=== PATIENT | male | born 1945 | race African-American/Black ===

== ENCOUNTER 2021-10-23 20:52 | Emergency (ER) | payer MEDICARE ==
[~2021-10-23] VITALS: Ht 180.3 cm; Wt 98.2 kg
[2021-10-23 21:11] VITALS: BP 190/81
--- NOTE | 2021-10-23 21:36 | PHYS DOC ---
Past History Past Surgical History: Other Additional Past Surgical Histo: CABG, Back sx x2, Neck surgeryx2,Hip sx x2 Alcohol Use: None Adult General Chief Complaint Chief Complaint: SKIN RASH/ABSCESS HPI HPI Patient is a 75-year-old male who presents with a chief complaint of rash. States that it started earlier today on his back and has been moving around over the course of the day from spots on his back to his belly. States that it does itch. Denies any headache, lightheadedness, changes in vision, chest pain, shortness of breath, wheezing, abdominal pain, nausea, vomiting, diarrhea. States that he did just get a new dog care over the last month but cannot think of any new exposures. Review of Systems Review of Systems Review of systems otherwise unremarkable except noted in HPI Allergies Allergies Allergies Coded Allergies Type Severity Reaction Last Updated Verified No Known Drug Allergies 10/23/21 No Physical Exam Physical Exam Constitutional: Well developed, well nourished, no acute distress, non-toxic appearance. [] HENT: Normocephalic, atraumatic,oropharynx moist, no oral exudates, nose normal. [] Eyes: conjunctiva normal, no discharge. [] Neck: Normal range of motion, no tenderness, supple, no stridor. [] Cardiovascular:Heart rate regular rhythm, no murmur [] Lungs & Thorax: Bilateral breath sounds clear to auscultation [] Abdomen: soft, no tenderness, no masses, no pulsatile masses. [] Skin: Urticaria on abdomen and back Back: No tenderness, no CVA tenderness. [] Extremities: No tenderness, no cyanosis, no clubbing, ROM intact, no edema. [] Neurologic: Alert and oriented X 3, normal motor function, normal sensory function, no focal deficits noted. [] Psychologic: Affect normal, judgement normal, mood normal. [] Current Patient Data Vital Signs Vital Signs Date Time Temp Pulse Resp B/P (MAP) Pulse Ox O2 Delivery O2 Flow Rate FiO2 10/23/21 21:11 97.7 72 18 190/81 (117) 98 Room Air EKG EKG [] Radiology/Procedures Radiology/Procedures [] Heart Score C/O Chest Pain: No Risk Factors: Risk Factors: DM, Current or recent (<one month) smoker, HTN, HLP, family history of CAD, obesity. Risk Scores: Risk Factors: DM, Current or recent (<one month) smoker, HTN, HLP, family history of CAD, obesity. Course & Med Decision Making Course & Med Decision Making Patient is a 75-year-old male who presents with hives Vital signs notable for hypertension. Physical exam noted above. Patient states that he forgot to take his blood pressure medicine today. Given steroids in the ED. Patient states he has Benadryl at home and will take it when you get home so he does not get tired when driving from the emergency department. Discussed symptomatic treatment at home. Advised to follow-up in the morning with primary care physician. Gave return precautions to the ED. Patient grateful, verbalized understanding and agreed with plan of discharge. [] Dragon Disclaimer Dragon Disclaimer This electronic medical record was generated, in whole or in part, using a voice recognition dictation system. Departure Departure: Impression: Primary Impression: Hives Disposition: HOME / SELF CARE / HOMELESS Condition: GOOD Referrals: JANE MORRISSEY MD (PCP) Patient Instructions: Hives Additional Instructions: Thank you for coming into the emergency department tonight and allowing us to take care of you. Please read the attached information carefully to go back over some of the things we discussed. Please start taking some Benadryl, 50 mg every 6 hours as needed for itching. Please follow-up in the morning with your primary care physician update on your ED visit and set up a follow-up. As we discussed, there could be many things that can cause hives, but pets especially new pets can be a trigger. Please try to remove any new triggers that she think you have been exposed to as far as pets, and chemicals like we discussed. Please come back with new or concerning symptoms as we discussed. JOÃO MOE MD Oct 23, 2021 21:36
[2021-10-23] MEDS ORDERED: DEXAMETHASONE 4 MG TABLET PO ONE (21:45)
== END 2021-10-23 21:50 | disposition home or self-care (01) ==
LOC: ER 20:52
DX: L50.9 Urticaria, unspecified (principal); Z95.1 Presence of aortocoronary bypass graft
CPT/HCPCS: 99283; J8540